=== PATIENT | female | born 1935 | race Caucasian/White ===

== ENCOUNTER 2019-03-14 15:01 | Observation (INO) ==
[2019-03-14] MEDS ORDERED: Acetaminophen IV 500 MG/50 ML INFUS..BTL IVPB ONE (22:52)
[2019-03-14] MEDS ORDERED: Acetaminophen 325 MG TABLET PO PRN (22:55)
[2019-03-14] MEDS ORDERED: Naloxone 0.4 MG/ML INJ IVP PRN (23:49)
[2019-03-14] MEDS: Acetaminophen 325 MG TABLET PO PRN (23:58)
[2019-03-15 00:59] LABS: Basophils % 0.1 %; Hematocrit 28.9 % (35.3-44.9); Immature Granulocytes % 0.3 % (0-4); Lymphocytes # 7.4 K/mcL (0.6-4.6); Lymphocytes % 59.9 %; Mean Corpuscular HGB Conc 31.1 g/dL (31.6-35.5); Mean Corpuscular Hemoglobin 30.4 pg (28.0-33.3); Mean Corpuscular Volume 97.6 fL (83.0-100.0); Mean Platelet Volume 10.3 fL (9.4-12.4); Monocytes # 0.7 K/mcL (0.0-1.3); Monocytes % 5.5 %; Neutrophils # 4.2 K/mcL (1.6-8.9); Platelet Count 113 K/mcL (140-400); Red Blood Count 2.96 M/mcL (3.82-4.97); Red Cell Distribution Width 15.6 % (11.5-14.5); Segmented Neutrophils % 34.2 %; White Blood Count 12.3 K/mcL (4.3-11.1)
[2019-03-15 01:18] LABS: Calcium 8.7 mg/dL (8.6-10.3); Potassium 4.5 mEq/L (3.5-5.1)
[2019-03-15 01:27] LABS: Platelet Estimate Decreased (Normal); Reactive Lymphocytes Present (Not Present)
[2019-03-15] MEDS ORDERED: Acetaminophen 325 MG TABLET PO PRN (06:00)
[2019-03-15] MEDS ORDERED: Perflutren Lipid Microsphere 1.3 ML in 0.9 % Sodium Chloride 8.7 ML IVP ONE (07:13)
[2019-03-15] MEDS: Acetaminophen 325 MG TABLET PO PRN (09:03)
[2019-03-15] MEDS ORDERED: Albuterol 2.5 MG/3 ML NEBULIZER IH PRN (12:29)
[2019-03-15] MEDS ORDERED: Tiotropium 18 MCG inhalation IH SCH (12:30)
[2019-03-15] MEDS: Furosemide 20 MG TABLET PO SCH (14:19)
[2019-03-15] MEDS: Aspirin Enteric Coated 81 MG Tablet PO SCH (14:19)
[2019-03-15] MEDS: Spironolactone 25 MG TABLET PO SCH (14:19)
[2019-03-16 00:28] LABS: Bilirubin,Urine Negative (Negative); Blood,Urine Negative (Negative); Clarity,Urine Clear (Clear); Color,Urine Yellow (Yellow); Glucose,Urine (UA) Normal (Normal); Ketones,Urine Negative (Negative); Leukocyte Esterase,Urine Small (Negative); Nitrite,Urine Negative (Negative); Protein,Urine Negative (Neg-Trace); Specific Gravity,Urine 1.018 (1.010-1.025); Urobilinogen,Urine Normal (Normal)
[2019-03-16 00:29] LABS: Bacteria,Urine None Seen per hpf (None-Few); Hyaline Casts,Urine None Seen per lpf (None-Few); RBC,Urine 0-3 per hpf (0-3); Squamous Epithelial Cell,Urine Many per lpf (None-Few)
[2019-03-16 04:24] LABS: Hemoglobin 9.9 g/dL (11.5-15.4); Mean Corpuscular HGB Conc 31.9 g/dL (31.6-35.5); Mean Corpuscular Hemoglobin 30.8 pg (28.0-33.3); Mean Corpuscular Volume 96.6 fL (83.0-100.0); Mean Platelet Volume 10.5 fL (9.4-12.4); Platelet Count 131 K/mcL (140-400); Red Blood Count 3.21 M/mcL (3.82-4.97); Red Cell Distribution Width 15.8 % (11.5-14.5); White Blood Count 13.7 K/mcL (4.3-11.1)
[2019-03-16 04:47] LABS: Calcium 8.8 mg/dL (8.6-10.3); Potassium 4.3 mEq/L (3.5-5.1)
[2019-03-16 05:09] LABS: Neutrophils # 5.8 K/mcL (1.6-8.9); Platelet Estimate Decreased (Normal); Reactive Lymphocytes Present (Not Present)
[2019-03-16] MEDS: Acetaminophen 325 MG TABLET PO PRN (06:23)
[2019-03-16] MEDS ORDERED: Tiotropium 18 MCG inhalation IH SCH (07:00)
[2019-03-16 08:43] LABS: Immature Reticulocyte % 31.3 % (11.0-38.0); Retculocyte # 0.17 M/mcL (0.05-0.10); Reticulocyte % 5.2 % (1.6-2.8)
[2019-03-16] MEDS: Spironolactone 25 MG TABLET PO SCH (09:17)
[2019-03-16] MEDS: Aspirin Enteric Coated 81 MG Tablet PO SCH (09:19)
[2019-03-16] MEDS: Furosemide 20 MG TABLET PO SCH (09:22)
[2019-03-16] MEDS ORDERED: *HR* Propofol 200 MG/20 ML VIAL IVP ONE (13:40)
[2019-03-16] MEDS ORDERED: *HR* Succinylcholine 200 MG/10 ML VIAL IVP ONE (13:40)
[2019-03-16] MEDS ORDERED: Ondansetron 4 MG/2 ML VIAL ONE (13:40)
[2019-03-16] MEDS ORDERED: Dexamethasone 4 MG/ML VIAL ONE (13:40)
[2019-03-16] MEDS ORDERED: Lidocaine -MPF 2% 2 ML VIAL ONE (13:40)
[2019-03-16] MEDS ORDERED: Neostigmine Methylsulfate 3 MG/3 ML SYRINGE ONE (13:40)
[2019-03-16] MEDS ORDERED: *HR* FentaNYL (PF) 100 MCG/2 ML VIAL ONE (13:40)
[2019-03-16] MEDS ORDERED: Ropivacaine/PF 0.5% 30 ML VIAL ONE (13:48)
[2019-03-16] MEDS ORDERED: ROPIVACAINE/PF/NS 0.25% 1 EACH SYRINGE INTRAART ONE (13:56)
[2019-03-16] MEDS ORDERED: Clindamycin 900 MG/50 ML 900 MG/50 ML IV.SOLN IVPB ONE ×2 (14:01→14:10)
[2019-03-16] MEDS ORDERED: Ethanol\\Acetic Acid\\Na Ace\\Ben 1,000 ML IRRIG.SOLN IR ONE (14:02)
[2019-03-16] MEDS ORDERED: Acetaminophen IV 1,000 MG/100 ML INFUS..BTL ONE (14:23)
[2019-03-16] MEDS ORDERED: *HR* OxyCODONE Immed Rel 5 MG TABLET PO PRN ×2 (14:31→17:53)
[2019-03-16] MEDS ORDERED: Albuterol 2.5 MG/3 ML NEBULIZER IH PRN ×2 (14:31→17:53)
[2019-03-16] MEDS ORDERED: Ondansetron 4 MG/2 ML VIAL IVP ONE (14:31)
[2019-03-16] MEDS ORDERED: *HR* Labetalol 20 MG/4 ML SYRINGE IVP PRN (14:31)
[2019-03-16] MEDS ORDERED: *HR* HYDROmorphone (PF) 1 MG/ML SYRINGE IVP PRN (14:31)
[2019-03-16] MEDS ORDERED: *HR* Promethazine 25 MG/ML VIAL IVP PRN (14:31)
[2019-03-16] MEDS ORDERED: EPHEDrine 50 MG/ML VIAL ONE (15:07)
[2019-03-16] MEDS ORDERED: Naloxone 0.4 MG/ML INJ IVP PRN (17:53)
[2019-03-16] MEDS ORDERED: *HR* OxyCODONE/APAP 5/325 TABLET PO PRN (17:53)
[2019-03-16] MEDS ORDERED: Clindamycin 900 MG/50 ML 900 MG/50 ML IV.SOLN IVPB SCH (17:53)
[2019-03-16] MEDS ORDERED: Sennosides 8.6 MG TABLET PO PRN (17:53)
[2019-03-16] MEDS ORDERED: traMADol 50 MG TABLET PO PRN (17:53)
[2019-03-16] MEDS ORDERED: Ringers Solution, Lactated 1,000 ML IVC SCH (17:53)
[2019-03-16] MEDS ORDERED: Ondansetron 4 MG/2 ML VIAL IVP PRN (17:53)
[2019-03-16] MEDS ORDERED: MOM Conc 10 ML UD.LIQ PO PRN (17:53)
[2019-03-16] MEDS ORDERED: Temazepam 15 MG CAPSULE PO PRN (17:53)
[2019-03-16 17:57] LABS: Hematocrit 30.4 % (35.3-44.9); Hemoglobin 9.6 g/dL (11.5-15.4)
[2019-03-16] MEDS: Clindamycin 900 MG/50 ML 900 MG/50 ML IV.SOLN IVPB SCH (23:31)
[2019-03-17] MEDS ORDERED: LEUKERAN PO ONE (00:30)
[2019-03-17 03:42] LABS: Hematocrit 25.8 % (35.3-44.9); Hemoglobin 8.1 g/dL (11.5-15.4); Immature Granulocytes % 0.2 % (0-4); Lymphocytes # 2.4 K/mcL (0.6-4.6); Lymphocytes % 26.7 %; Mean Corpuscular HGB Conc 31.4 g/dL (31.6-35.5); Mean Corpuscular Hemoglobin 31.5 pg (28.0-33.3); Mean Corpuscular Volume 100.4 fL (83.0-100.0); Mean Platelet Volume 10.8 fL (9.4-12.4); Monocytes # 0.3 K/mcL (0.0-1.3); Monocytes % 3.2 %; Neutrophils # 6.2 K/mcL (1.6-8.9); Red Blood Count 2.57 M/mcL (3.82-4.97); Red Cell Distribution Width 15.7 % (11.5-14.5); Segmented Neutrophils % 69.9 %; White Blood Count 8.9 K/mcL (4.3-11.1)
[2019-03-17 03:43] LABS: Platelet Count 93 K/mcL (140-400)
[2019-03-17 03:45] LABS: Platelet Estimate Decreased (Normal)
[2019-03-17 04:03] LABS: Calcium 8.1 mg/dL (8.6-10.3); Potassium 4.7 mEq/L (3.5-5.1)
[2019-03-17] MEDS: Clindamycin 900 MG/50 ML 900 MG/50 ML IV.SOLN IVPB SCH (06:13)
[2019-03-17] MEDS: Furosemide 20 MG TABLET PO SCH (07:44)
[2019-03-17] MEDS: Spironolactone 25 MG TABLET PO SCH (07:44)
[2019-03-17] MEDS: Aspirin Enteric Coated 81 MG Tablet PO SCH (07:44)
[2019-03-17] MEDS: Tiotropium 18 MCG inhalation IH SCH (07:57)
[2019-03-17 14:08] LABS: Hematocrit 26.5 % (35.3-44.9); Hemoglobin 8.5 g/dL (11.5-15.4)
[2019-03-17] MEDS: Acetaminophen 325 MG TABLET PO PRN (17:18)
[2019-03-17] MEDS: Ibuprofen 200 MG TABLET PO PRN (21:34)
[2019-03-18 03:41] LABS: Hematocrit 29.3 % (35.3-44.9); Hemoglobin 9.1 g/dL (11.5-15.4); Mean Corpuscular HGB Conc 31.1 g/dL (31.6-35.5); Mean Corpuscular Hemoglobin 30.8 pg (28.0-33.3); Mean Corpuscular Volume 99.3 fL (83.0-100.0); Mean Platelet Volume 10.7 fL (9.4-12.4); Platelet Count 145 K/mcL (140-400); Red Blood Count 2.95 M/mcL (3.82-4.97)
[2019-03-18 04:02] LABS: Calcium 8.4 mg/dL (8.6-10.3); Potassium 4.2 mEq/L (3.5-5.1)
[2019-03-18 04:06] LABS: White Blood Count 19.3 K/mcL (4.3-11.1)
[2019-03-18] MEDS: Acetaminophen 325 MG TABLET PO PRN ×2 (04:34→15:53)
[2019-03-18 05:05] LABS: Basophils % 0.1 %; Hematocrit 25.4 % (35.3-44.9); Hemoglobin 8.1 g/dL (11.5-15.4); Immature Granulocytes % 0.3 % (0-4); Lymphocytes # 8.1 K/mcL (0.6-4.6); Lymphocytes % 57.2 %; Mean Corpuscular HGB Conc 31.9 g/dL (31.6-35.5); Mean Corpuscular Hemoglobin 31.4 pg (28.0-33.3); Mean Corpuscular Volume 98.4 fL (83.0-100.0); Mean Platelet Volume 10.5 fL (9.4-12.4); Monocytes # 1.4 K/mcL (0.0-1.3); Monocytes % 9.9 %; Neutrophils # 4.6 K/mcL (1.6-8.9); Platelet Count 108 K/mcL (140-400); Red Blood Count 2.58 M/mcL (3.82-4.97); Segmented Neutrophils % 32.5 %; White Blood Count 14.1 K/mcL (4.3-11.1)
[2019-03-18 05:47] LABS: Platelet Estimate Slight Decrease (Normal); Reactive Lymphocytes Present (Not Present)
[2019-03-18] MEDS: Tiotropium 18 MCG inhalation IH SCH (07:50)
[2019-03-18] MEDS: Spironolactone 25 MG TABLET PO SCH (08:45)
[2019-03-18] MEDS: Aspirin Enteric Coated 81 MG Tablet PO SCH (08:47)
[2019-03-18] MEDS ORDERED: Furosemide 40 MG/4 ML VIAL IVP ONE (13:42)
[2019-03-19 01:39] LABS: Hemoglobin 8.5 g/dL (11.5-15.4); Mean Corpuscular HGB Conc 30.4 g/dL (31.6-35.5); Mean Corpuscular Hemoglobin 30.7 pg (28.0-33.3); Mean Corpuscular Volume 101.1 fL (83.0-100.0); Mean Platelet Volume 10.7 fL (9.4-12.4); Platelet Count 121 K/mcL (140-400); Red Blood Count 2.77 M/mcL (3.82-4.97); White Blood Count 14.7 K/mcL (4.3-11.1)
[2019-03-19 01:56] LABS: Calcium 8.7 mg/dL (8.6-10.3); Potassium 4.1 mEq/L (3.5-5.1)
[2019-03-19] MEDS: Acetaminophen 325 MG TABLET PO PRN (04:18)
[2019-03-19] MEDS: Tiotropium 18 MCG inhalation IH SCH (08:03)
[2019-03-19] MEDS: Aspirin Enteric Coated 81 MG Tablet PO SCH (08:42)
[2019-03-19] MEDS: Furosemide 20 MG TABLET PO SCH (08:42)
[2019-03-19] MEDS: Spironolactone 25 MG TABLET PO SCH (08:43)
[2019-03-19] MEDS: Ibuprofen 200 MG TABLET PO PRN (08:43)
[2019-03-20] MEDS: Acetaminophen 325 MG TABLET PO PRN ×2 (04:46→14:01)
[2019-03-20] MEDS: Aspirin Enteric Coated 81 MG Tablet PO SCH (07:57)
[2019-03-20] MEDS: Spironolactone 25 MG TABLET PO SCH (07:57)
[2019-03-20] MEDS: Furosemide 20 MG TABLET PO SCH (07:57)
[2019-03-20] MEDS: Tiotropium 18 MCG inhalation IH SCH (08:13)
[2019-03-20 12:46] VITALS: BP 134/53
== END 2019-03-20 14:18 ==
LOC: 3NENU → SUATTDRO 16:49 → CDU 03-20 10:56
PROVIDERS: ADMIT Student in an Organized Health Care Education/Training Program; ATTEND Internal Medicine